=== PATIENT | female | born 1960 | race Caucasian/White ===

== ENCOUNTER 2019-09-22 14:58 | Emergency (ER) | payer OTHER ==
[~2019-09-22] VITALS: Ht 167.6 cm; Wt 68.0 kg
[2019-09-22] MEDS ORDERED: EPINEPHRINE 1 MG/1 ML AMP ONE (15:02)
[2019-09-22] MEDS ORDERED: EPINEPHRINE-PF 1:1000 1 MG/ML AMPUL IV ONE (15:15)
[2019-09-22 15:25] VITALS: BP 143/92
--- NOTE | 2019-09-22 15:25 | NUR ---
Patient discharged to home in stable conditon. Written and verbal after care instructions given. Patient verbalizes understanding of instructions. Rhino rocket in place inside left nostril; secured withpaper tape. Patient ambulated with stable gait.
[2019-09-23] MEDS ORDERED: OMEG1CAP GT (15:09)
[2019-09-23] MEDS ORDERED: ESCI20TA PO (15:09)
== END 2019-09-22 15:26 | disposition home or self-care (01) ==
LOC: ER 14:58
DX: R04.0 Epistaxis (principal)
CPT/HCPCS: 30901; 99284; J0171; A4663

== ENCOUNTER 2019-09-23 14:49 | Emergency (ER) | payer OTHER ==
[~2019-09-23] VITALS: Ht 170.2 cm; Wt 82.1 kg
[2019-09-23] MEDS ORDERED: ESCI20TA PO (15:09)
[2019-09-23] MEDS ORDERED: OMEG1CAP GT (15:09)
--- NOTE | 2019-09-23 15:24 | NUR ---
Patient came for rhino rocket removal, was inserted by Dr. Medina yesterday 09/22/19 and was told to come back in 24 hours to have it re-evaluated and removed.
--- NOTE | 2019-09-23 15:27 | NUR ---
Patient discharged to home in stable conditon. Written and verbal after care instructions given. Patient verbalizes understanding of instructions. Patient ambulated with stable gait.
[2019-09-23 15:28] VITALS: BP 135/71
== END 2019-09-23 15:30 | disposition home or self-care (01) ==
LOC: ER 14:53
DX: R04.0 Epistaxis (principal); Z79.899 Other long term (current) drug therapy
CPT/HCPCS: A4663

== ENCOUNTER 2020-10-26 09:31 | Emergency (ER) | payer OTHER ==
[~2020-10-26] VITALS: Ht 167.6 cm; Wt 81.6 kg
[~2020-10-26 09:31] MED LIST: ESCI20TA PO; OMEG1CAP GT
[2020-10-26] MEDS ORDERED: PHENYLEPHRINE 1% (EXTRA STR) NASAL SPRAY NS ONE ×2 (09:45→09:49)
--- NOTE | 2020-10-26 10:34 | NUR ---
nose bleed stoppedPatient discharged to home in stable condition. Written and verbal after care instructions given. Patient verbalizes understanding of instructions. Stressed follow up or return to ER for worsening s/s.
[2020-10-26 10:35] VITALS: BP 141/81
== END 2020-10-26 10:36 | disposition home or self-care (01) ==
LOC: ER 09:31
DX: R04.0 Epistaxis (principal)
CPT/HCPCS: A4663

== ENCOUNTER 2025-02-09 20:01 | Emergency (ER) | payer OTHER ==
[~2025-02-09] VITALS: Ht 170.2 cm; Wt 79.4 kg
[2025-02-09] MEDS ORDERED: SILVER SULFADIAZINE 1% CREAM 50 GM TP ONE (21:03)
[2025-02-09] MEDS ORDERED: HYDROCODONE/APAP 10-325 MG TABLET ONE (21:03)
[2025-02-09] MEDS: SILVER SULFADIAZINE 1% CREAM 50 GM TP ONE (21:17)
[2025-02-09] MEDS: HYDROCODONE/APAP 10-325 MG TABLET PO ONE (21:17)
[2025-02-09 22:23] VITALS: BP 152/108; TEMP 98.6; O2SAT 98
== END 2025-02-09 21:38 | disposition home or self-care (01) ==
LOC: ER 20:12
DX: T22.111A Burn of first degree of right forearm, initial encounter (principal); E78.5 Hyperlipidemia, unspecified; Z79.899 Other long term (current) drug therapy; X11.8XXA Contact with other hot tap-water, initial encounter; Y93.89 Activity, other specified; Y92.090 Kitchen in other non-institutional residence as the place of occurrence of the external cause; Y99.8 Other external cause status
CPT/HCPCS: 16020; A4606; A4663